=== PATIENT | female | born 1970 | race Caucasian/White ===

== ENCOUNTER 2020-04-19 17:23 | Emergency (ER) | payer MEDICAID ==
[~2020-04-19] VITALS: Ht 157.5 cm; Wt 85.0 kg
[~2020-04-19 17:23] MED LIST: NO HOME MEDS
[2020-04-19 19:12] VITALS: BP 131/90
[2020-04-19] MEDS ORDERED: ALBU8HFA PO (19:57)
== END 2020-04-19 20:10 | disposition home or self-care (01) ==
LOC: ER 17:23
DX: J45.909 Unspecified asthma, uncomplicated (principal); R51 Headache; R11.0 Nausea; R53.1 Weakness
CPT/HCPCS: 99283

== ENCOUNTER 2020-06-24 02:19 | Emergency (ER) | payer MEDICAID, OTHER ==
[~2020-06-24] VITALS: Ht 157.5 cm; Wt 68.2 kg
[2020-06-24] MEDS ORDERED: cyclobenzaprine 10mg tablet PO ONE (03:35)
[2020-06-24 03:56] VITALS: BP 145/98
[2020-06-24] MEDS ORDERED: CYCL-1 PO (04:01)
== END 2020-06-24 04:21 | disposition home or self-care (01) ==
LOC: ER 02:20
DX: S16.1XXA Strain of muscle, fascia and tendon at neck level, initial encounter (principal); S80.00XA Contusion of unspecified knee, initial encounter; S00.03XA Contusion of scalp, initial encounter; J45.909 Unspecified asthma, uncomplicated; F17.200 Nicotine dependence, unspecified, uncomplicated; V49.88XA Car occupant (driver) (passenger) injured in other specified transport accidents, initial encounter; Y93.89 Activity, other specified; Y92.89 Other specified places as the place of occurrence of the external cause; Y99.8 Other external cause status
CPT/HCPCS: 72040; 99283

== ENCOUNTER 2020-09-05 00:47 | Emergency (ER) | payer OTHER ==
[~2020-09-05] VITALS: Ht 157.5 cm; Wt 84.0 kg
[~2020-09-05 00:47] MED LIST changes: +CYCL-1 PO
[2020-09-05] MEDS: orphenadrine citrate 60mg/2ml inj. IM ONE (04:22)
[2020-09-05] MEDS: SUMAtriptan succ. 6 MG/0.5ml vial SQ ONE (04:22)
[2020-09-05 04:30] VITALS: BP 161/111
== END 2020-09-05 04:44 | disposition home or self-care (01) ==
LOC: ER 00:47
DX: R51.9 Headache, unspecified (principal); M54.32 Sciatica, left side; H53.8 Other visual disturbances; M54.5 Low back pain; J45.909 Unspecified asthma, uncomplicated; Z79.899 Other long term (current) drug therapy
CPT/HCPCS: 70450; 96372; 99284; J2360; J3030